=== PATIENT | male | born 2000 | race Caucasian/White ===

== ENCOUNTER 2020-07-10 09:18 | Outpatient (CLI) | payer MEDICAID, SELFPAY ==
[2020-07-11 00:28] LABS: COVID-19 RT-PCR UVMMC Result Negative (Negative)
== END 2020-07-10 09:38 ==
PROVIDERS: PCP Pediatrics; Visit Provider Nurse Practitioner Family
DX: Z11.59 Encounter for screening for other viral diseases (principal)
CPT/HCPCS: U0003

== ENCOUNTER 2021-11-16 15:36 | Emergency (ER) | payer MEDICAID, SELFPAY ==
[2021-11-16 15:42] VITALS: BP 122/73; PULSE 73; RESP 16; TEMP 36.7; O2SAT 99
--- NOTE | 2021-11-16 16:11 | ED.GENADUL_ITS ---
Discharge Plan Disposition Patient Disposition: HOME Condition: Stable Discharge Details Clinical Impression: Chalazion Primary Care Provider: Clement Mccann ED Provider: Juma Durand Home Meds and New Rx's Prescriptions: No Action albuterol sulfate [ProAir HFA] 90 mcg/actuation HFA aerosol inhaler 2 puff Inhalation Q4H PRN Qty: 8.5 1RF Rx Instructions: 1 for home and 1 for school Flovent Diskus 250 mcg/actuation blister with device 250 mcg Inhalation DAILY Qty: 1 3RF montelukast 10 mg tablet 10 mg PO DAILY Qty: 90 3RF Discharge Instructions Instructions: Chalazion (ED) Additional Instructions: Please use warm compresses 5-7 times a day for 5 to 10 minutes at a time, in order to help reduce inflammation. Please return to the emergency department if you develop fevers chills worsening swelling pain change in your vision or if this condition is not resolving in the coming weeks or if you develop any abnormal symptomatology. You will receive information for eye clinic follow-up as needed. Medical Decision Making 21-year-old male presents with 1 to 2 weeks of painless nodule to right lower eyelid, slight erythema, 1 cm nodule to mid lower lid, when everted can see gray/heber colored nodule, no eyelash base irritation, no surrounding induration or fluctuance, no proptosis, no visual changes, afebrile nontoxic does not wear contacts or glasses. Likely chalazion versus resolving hordeolum. Given home care instructions of warm compresses and strict return precautions for any signs of infection visual changes eye pain or worsening symptomatology; will be given [facility] eye clinic as well as [facility] ophthal[facility] clinic information to be used as needed for worsening symptoms. HPI General Date/Time Provider Initiated Documentation: 11/16/21 15:40 . HPI Narrative: 21-year-old male presents with painless lump to right lower eyelid over the past 1 to 2 weeks, denies purulent drainage or purulent head denies visual changes denies fevers chills or other systemic signs of illness does not wear glasses or contact lenses Related Data Home Medications Medication Instructions Recorded Confirmed albuterol sulfate 90 mcg/actuation 2 puff INHALATION Q4H PRN #8.5 g 07/10/21 11/16/21 aerosol inhaler (ProAir HFA) fluticasone propionate 250 250 mcg INHALATION DAILY #1 disk 07/10/21 11/16/21 mcg/actuation blister powder for inhalation (Flovent Diskus) montelukast 10 mg tablet 10 mg PO DAILY #90 tab 07/10/21 11/16/21 Previous Rx's Medication Instructions Recorded albuterol sulfate 90 mcg/actuation 2 puff INHALATION Q4H PRN #8.5 g 07/10/21 aerosol inhaler (ProAir HFA) fluticasone propionate 250 250 mcg INHALATION DAILY #1 disk 07/10/21 mcg/actuation blister powder for inhalation (Flovent Diskus) montelukast 10 mg tablet 10 mg PO DAILY #90 tab 07/10/21 Allergies Allergy/AdvReac Type Severity Reaction Status Date / Time cat dander Allergy Verified 11/16/21 15:47 dog dander Allergy Verified 11/16/21 15:47 Dust Mites Allergy Uncoded 11/16/21 15:47 General Stated Complaint: EyeProblem JOSELINE: 3 Review of Systems Narrative: Review of Systems Constitutional: negative Eyes: Eye nodule ENT: negative Cardiovascular: negative Respiratory: negative Gastrointestinal: negative : negative Musculoskeletal: negative Skin: negative Neurologic: negative Psych: negative PFSH All Active Problems (Updated 11/16/21 @ 16:18 by Juma Durand MD) Chalazion (Acute) Encounter for screening for other viral diseases (Acute) Body mass index [BMI] pediatric, 5th percentile to less than 85th percentile for age (Acute 08/30/15) Urticaria due to cold and heat (Acute 07/23/12) Academic underachievement (Acute 08/18/13) Mild persistent asthma without complication (Acute 08/30/15) Routine sports examination for healthy child or adolescent (Acute 06/30/12) Medical History Asthma Asthma, moderate persistent, well-controlled (06/30/12) well managed with flovent Body mass index [BMI] pediatric, 5th percentile to less than 85th percentile for age (08/30/15) Ingrowing toenail (02/19/13) Urticaria due to cold and heat (07/23/12) Surgical History Circumcision Oral/Tooth Toe nail removal Family History Mother Healthy adult on routine physical examination Father Healthy adult on routine physical examination Other Essential hypertension MGM, MGF Personal history of malignant neoplasm MGM-brain, MGF-colon Heart disease MGF Hyperlipidemia MGF, MGM Wilm's tumor (nephroblastoma) mat aunt Asthma mat cousins Social History Smoking/Tobacco Use Status: Never Smoking risk assessment performed?: Yes Alcohol Intake: current Exam Narrative Exam Narrative: Physical Examination General: alert, awake, cooperative, resting comfortably, no acute distress HEENT: Painless slightly erythematous nodule approximately 1 cm in diameter middle aspect of lower lid, with lid everted cannot see nodule on internal surface of lid has gray/heber like coloration; no fluctuance no proptosis no inflammation of eyelash base; normocephalic, atraumatic; PERRL, EOM intact, conjunctiva normal; no nasal discharge; moist mucous membranes, oral and pharyngeal mucosa normal, tolerating secretions Neck: supple, trachea midline; full ROM Chest: normal to inspection Respiratory: normal respiratory effort, speaking in full sentences, clear to auscultation, no wheezing, rales or rhonchi Cardiac: regular rate, regular rhythm, S1S2 intact, no murmurs rubs or gallops GI: abdomen soft, non-tender, non-distended; no palpable mass or hepatosp lenomegaly Skin: no lesions, rashes or trauma appreciated Neuro: AAOx3, normal speech, moving all extremities Extremities: Psych: Appropriate mood and affect Course Vital Signs Vital signs: Vital Signs Temperature 36.7 C 11/16/21 15:42 Pulse 73 11/16/21 15:42 Respiratory Rate 16 11/16/21 15:42 Blood Pressure 122/73 11/16/21 15:42 Pulse Oximetry 99 11/16/21 15:42 Temperature 36.7 C 11/16/21 15:42 Temperature Source Temporal Artery Scan 11/16/21 15:42 Pulse 73 11/16/21 15:42 Respiratory Rate 16 11/16/21 15:42 Respiratory Effort 11/16/21 15:47 Blood Pressure 122/73 11/16/21 15:42 Pulse Oximetry 99 11/16/21 15:42 Oxygen Delivery Method Room Air 11/16/21 15:42 Oxygen Flow Rate 0 11/16/21 15:42 Pain Level 0 11/16/21 15:42
--- NOTE | 2021-11-16 16:19 | NUR.NOTE ---
Nursing Note: PT INFO GIVEN TO CARE MANAGEMENT TO [place] [facility] [place] [facility] THE NEXT FEW WEEKS. RAUDEL, ED
--- NOTE | 2021-11-19 11:16 | CMACTNOTE_ITS ---
- If Service Date Differs Date of service: 11/19/21 Time of Service: 11:16 Care Management Activity Note Herbie is seen in the ED for a chalazion on his right eyelid. At the request of ED provider, CM coordinates referrals to [facility] and to [facility] to assist Herbie in obtaining a follow up appointment for further evaluation and treatment. Herbie has [place] Medicaid for health insurance.
== END 2021-11-16 16:31 | disposition home or self-care (01) ==
PROVIDERS: Emergency Provider Emergency Medicine; PCP Family Medicine
DX: H00.11 Chalazion right upper eyelid (principal)
CPT/HCPCS: 99281

== ENCOUNTER 2022-06-26 21:16 | Emergency (ER) | payer MEDICAID, SELFPAY ==
[2022-06-26] VITALS (16 sets, daily range): BP systolic 115; BP diastolic 100; PULSE 109–142; RESP 10–20; TEMP 38.1; O2SAT 96–100
--- NOTE | 2022-06-26 21:30 | DI.RAD_ITS ---
Exam(s) XR PORTABLE CHEST AP EXAM: XR PORTABLE CHEST AP CLINICAL HISTORY: cough, fever TECHNIQUE: 2D digital imaging was performed of the chest. Two images were obtained. AP views were obtained. COMPARISON: No exams were available for comparison FINDINGS: MEDIASTINUM: Normal. HEART: Normal. PULMONARY VASCULATURE: Normal. LUNGS: Clear. PLEURAL SPACE: No pleural effusion or pneumothorax. BONE:Within normal limits for the patient's age. OTHER FINDINGS:Normal. IMPRESSION: No acute pulmonary findings. DATA REPOSITORY: RADIATION DOSE DELIVERED:
--- NOTE | 2022-06-26 21:45 | ED.GENADUL_ITS ---
Discharge Plan Discharge Details Chief Complaint: RespSymp Primary Care Provider: Unknown,Unknown ED Provider: Juma Durand Home Meds and New Rx's Prescriptions: No Action albuterol sulfate [ProAir HFA] 90 mcg/actuation HFA aerosol inhaler 2 puff Inhalation Q4H PRN Qty: 8.5 1RF Rx Instructions: 1 for home and 1 for school Flovent Diskus 250 mcg/actuation blister with device 250 mcg Inhalation DAILY Qty: 1 3RF montelukast 10 mg tablet 10 mg PO DAILY Qty: 90 3RF Medical Decision Making 21-year-old male presents with fever, tachycardia, cough, chest congestion over the past several days, recent sick contact tested positive for influenza. Patient is alert oriented no respiratory distress lungs clear bilaterally no hypoxia. No family history of premature cardiac or thromboembolic disease. Likely viral syndrome and resultant reactive airway disease, lower suspicion for ACS PE or aortic pathology. Must also consider pneumonia. Will obtain basic labs chest x-ray COVID rsv influenza swab, fluids, antipyretics, nebs and steroids, close reassessment. 23: 00 receiving neb treatment steroids and fluids currently, persistently tachycardic x-ray appears clear, awaiting labs and COVID flu RSV swab. No rash or distress at this time, hemodynamically stable. Disposition pending reassessment of symptoms and vital signs. HPI General Date/Time Provider Initiated Documentation: 06/26/22 21:34 . HPI Narrative: 21-year-old male history of asthma presents with fever cough and chest tightness in the setting of recent sick contact who tested positive for the flu. Denies family history of premature cardiac or thromboembolic disease. No leg pain or swelling. No recent travel or antibiotic use. Related Data Home Medications Medication Instructions Recorded Confirmed albuterol sulfate 90 mcg/actuation 2 puff inhalation Q4H PRN #8.5 07/10/21 11/16/21 aerosol inhaler (ProAir HFA) grams fluticasone propionate 250 250 mcg inhalation DAILY ##1 07/10/21 11/16/21 mcg/actuation blister powder for inhalation (Flovent Diskus) montelukast 10 mg tablet 10 mg PO DAILY #90 tabs 07/10/21 11/16/21 Previous Rx's Medication Instructions Recorded albuterol sulfate 90 mcg/actuation 2 puff inhalation Q4H PRN #8.5 07/10/21 aerosol inhaler (ProAir HFA) grams fluticasone propionate 250 250 mcg inhalation DAILY ##1 07/10/21 mcg/actuation blister powder for inhalation (Flovent Diskus) montelukast 10 mg tablet 10 mg PO DAILY #90 tabs 07/10/21 Allergies Allergy/AdvReac Type Severity Reaction Status Date / Time cat dander Allergy Verified 11/16/21 15:47 dog dander Allergy Verified 11/16/21 15:47 Dust Mites Allergy Uncoded 11/16/21 15:47 General Stated Complaint: RespSymp JOSELINE: 3 Review of Systems Narrative: Review of Systems Constitutional: negative Eyes: negative ENT: negative Cardiovascular: negative Respiratory: Cough, chest congestion Gastrointestinal: negative : negative Musculoskeletal: negative Skin: negative Neurologic: negative Psych: negative PFSH All Active Problems (Updated 12/17/21 @ 00:05 by EDWARDO HEAD) Encounter for screening for other viral diseases (Acute) Body mass index [BMI] pediatric, 5th percentile to less than 85th percentile for age (Acute 08/30/15) Urticaria due to cold and heat (Acute 07/23/12) Academic underachievement (Acute 08/18/13) Mild persistent asthma without complication (Acute 08/30/15) Routine sports examination for healthy child or adolescent (Acute 06/30/12) Medical History Asthma Asthma, moderate persistent, well-controlled (06/30/12) well managed with flovent Body mass index [BMI] pediatric, 5th percentile to less than 85th percentile for age (08/30/15) Ingrowing toenail (02/19/13) Urticaria due to cold and heat (07/23/12) Surgical History Circumcision Oral/Tooth Toe nail removal Family History Mother Healthy adult on routine physical examination Father Healthy adult on routine physical examination Other Essential hypertension MGM, MGF Personal history of malignant neoplasm MGM-brain, MGF-colon Heart disease MGF Hyperlipidemia MGF, MGM Wilm's tumor (nephroblastoma) mat aunt Asthma mat cousins Social History Smoking/Tobacco Use Status: Never Smoking risk assessment performed?: Yes Alcohol Intake: current Drug use: Never Substance use type: does not use Do you feel safe at home: Yes Do you feel safe in your relationship?: Yes Exam Narrative Exam Narrative: Physical Examination General: alert, awake, cooperative, resting comfortably, no acute distress HEENT: normocephalic, atraumatic; PERRL, EOM intact, conjunctiva normal; no nasal discharge; moist mucous membranes, oral and pharyngeal mucosa normal, tolerating secretions Neck: supple, trachea midline; full ROM Chest: normal to inspection Respiratory: normal respiratory effort, speaking in full sentences, clear to auscultation, no wheezing, rales or rhonchi Cardiac: Tachycardia, regular rhythm, S1S2 intact, no murmurs rubs or gallops GI: abdomen soft, non-tender, non-distended; no palpable mass or hepatosplenomegaly Skin: no lesions, rashes or trauma appreciated Neuro: AAOx3, normal speech, moving all extremities Psych: Appropriate mood and affect Course Vital Signs Vital signs: Vital Signs Temperature 38.1 C H 06/26/22 21:26 Pulse 114 H 06/26/22 21:26 Respiratory Rate 20 06/26/22 21:26 Blood Pressure 115/100 H 06/26/22 21:26 Pulse Oximetry 96 06/26/22 21:26 Temperature 38.1 C H 06/26/22 21:26 Pulse 114 H 06/26/22 21:26 Respiratory Rate 20 06/26/22 21:26 Blood Pressure 115/100 H 06/26/22 21:26 Blood Pressure Position Sitting 06/26/22 21:26 Pulse Oximetry 96 06/26/22 21:26 Oxygen Delivery Method Room Air 06/26/22 21:26 Oxygen Flow Rate 0 06/26/22 21:26 Pain Level 0 06/26/22 21:26
--- NOTE | 2022-06-26 22:04 | DI.VRAD_ITS ---
PROCEDURE INFORMATION: Exam: XR Chest Exam date and time: 06/26/2022 9:33 PM Age: 21 years old Clinical indication: Cough and hyperventilation TECHNIQUE: Imaging protocol: Radiologic exam of the chest. Views: 1 view. COMPARISON: No relevant prior studies available. FINDINGS: Mildly limited due to rotation Lungs: Mild chronic interstitial prominence. No consolidation. Pleural spaces: No pleural effusion. No pneumothorax. Heart/Mediastinum: No cardiomegaly. Bones/joints: Unremarkable. IMPRESSION: No acute findings. Dictated and Authenticated by: Severiano Landeros MD. Ordering:SAQIB Dennison MD
[2022-06-26 22:34] LABS: Abs Immature Grans 0.03 10^3/uL (0.0-0.06); Absolute Basophil Count 0.03 10^3/uL (0.0-0.2); Absolute Eosinophil Count 0.41 10^3/uL (0.0-0.7); Absolute Lymphocyte Count 0.63 10^3/uL (1.2-3.4); Absolute Monocyte Count 0.72 10^3/uL (0.1-0.8); Absolute Neutrophil Count 5.18 10^3/uL (1.2-6.7); Basophils % 0.4; Eosinophils % 5.9; HCT 42.5 % (40.0-50.0); HGB 14.7 g/dL (13.5-17.5); Immature Grans % 0.4; MCH 28.7 pg (27.0-33.0); MCHC 34.6 % (32.0-36.0); MCV 83 fL (80-95); MPV 9.8 fL (8.0-11.0); Monocytes % 10.3; Platelet Count 184 10^3/uL (130-400); RBC 5.12 10^6/uL (4.36-5.78); RDW 11.9 % (11.8-14.1); RDW-SD 36.4 fL
[2022-06-26] MEDS: Acetaminophen 325 MG TAB 650 MG PO (22:38)
[2022-06-26] MEDS: Albuterol/Ipratropium 3 ML UPD VIAL UPD (22:38)
--- NOTE | 2022-06-26 22:45 | RT.EKG_ITS ---
APPROVED REPORT Exam: Resting ECG Reason for Exam: tachycardia Patient Location: E HR:129 bpm ECG Measurements Heart Rate 129 AXIS RI 132 P 64 QRSd 90 QRS 60 QT 281 T 264 QTc 411 Conclusion Sinus tachycardia...rate> [address] depression, diffuse leads...ST <-0.07mV, ant/lat/inf Abnormal T, consider ischemia, diffuse leads...T <-0.20mV, ant/lat/inf sinus tachycardia, norml axis, rate related st changes
[2022-06-26] MEDS: Normal Saline 1,000 ML 1000 ML IV (22:55)
[2022-06-26 23:01] LABS: ALT 29 U/L (16-63); AST 18 U/L (15-37); Albumin 4.2 g/dL (3.4-5.0); Alkaline Phosphatase 108 U/L (46-116); Anion Gap 8.8 mmol/L (3-11); BUN 6 mg/dL (7-18); Bilirubin, Total 0.6 mg/dL (0.2-1.0); CO2 27.2 mmol/L (21.0-32.0); CREATININE 1.1 mg/dL (0.70-1.30); Calcium 9.2 mg/dL (8.5-10.1); Chloride 101 mmol/L (98-107); Estimated GFR 97.95 (mL/min/1.73m2); Glucose 91 mg/dL (74-106); Potassium 3.6 mmol/L (3.5-5.1); Sodium 137 mmol/L (136-145); Total Protein 7.6 g/dL (6.4-8.2)
[2022-06-26] MEDS: Dexamethasone 10 MG/ML VIAL IVP (23:01)
[2022-06-26 23:12] LABS: COVID-19 PCR Negative (Negative); Influenza A PCR Positive (Negative); Influenza B PCR Negative (Negative); RSV PCR Negative (Negative)
[2022-06-26 23:13] LABS: Source Nasopharynx
[2022-06-27] VITALS (7 sets, daily range): PULSE 105–127; RESP 12–22; O2SAT 97–98
--- NOTE | 2022-06-27 00:06 | W.EDPROG ---
Date of service: 06/26/22 Time of Service: 23:00 Medical Decision Making 2299 --please see Dr. Durand's note for initial presentation, exam and plan. Case endorsed to follow-up on labs and imaging and final disposition. It is suspected his symptoms are infectious in nature and to reassess after meds. 2330 --patient is influenza A positive. Remainder of labs unremarkable. Chest x-ray negative for acute findings. He remains tachycardic. Will give additional IV fluids and reassess. 0030 --Pt reassessed and he feels much better would like to go home. Heart rate much improved to low 100s. Patient is requesting to go home. Discussed that he is outside the treatment window for antiviral medication. He is advised to increase fluids, rest and alternating Tylenol Motrin. Advised to follow up with the primary care doctor for re-evaluation. Usual and customary return precautions given prior to discharge. Medical Records Medical records reviewed: Yes I reviewed the patient's medical records. Imaging Data Radiologic Study: Radiologist's impression: XR Chest Exam date and time: 06/26/2022 9:33 PM Age: 21 years old Clinical indication: Cough and hyperventilation TECHNIQUE: Imaging protocol: Radiologic exam of the chest. Views: 1 view. COMPARISON: No relevant prior studies available. FINDINGS: Mildly limited due to rotation Lungs:? Mild chronic interstitial prominence. No consolidation. Pleural spaces: No pleural effusion. No pneumothorax. Heart/Mediastinum: No cardiomegaly. Bones/joints: Unremarkable. IMPRESSION: No acute findings. Lab Data Lab results reviewed: Yes I reviewed the patient's lab results. Labs: Laboratory Tests Range/Units 06/26/22 06/26/22 06/26/22 22:30 22:30 22:30 WBC (4.4-10.8) 10^3/uL 7.00 RBC (4.36-5.78) 10^6/uL 5.12 Hgb (13.5-17.5) g/dL 14.7 Hct (40.0-50.0) % 42.5 MCV (80-95) fL 83 MCH (27.0-33.0) pg 28.7 MCHC (32.0-36.0) % 34.6 RDW (11.8-14.1) % 11.9 Plt Count (130-400) 10^3/uL 184 MPV (8.0-11.0) fL 9.8 Immature Gran % 0.4 Neutrophils % 74.0 Lymphocytes % 9.0 Monocytes % 10.3 Eosinophils % 5.9 Basophils % 0.4 Nucleated RBC % (0.0-0.3) % 0.0 Absolute Neutrophils (1.2-6.7) 10^3/uL 5.18 Absolute Lymphocytes (1.2-3.4) 10^3/uL 0.63 L Absolute Monocytes (0.1-0.8) 10^3/uL 0.72 Absolute Eosinophils (0.0-0.7) 10^3/uL 0.41 Absolute Basophils (0.0-0.2) 10^3/uL 0.03 Sodium (136-145) mmol/L 137 Potassium (3.5-5.1) mmol/L 3.6 Chloride (98-107) mmol/L 101 Carbon Dioxide (21.0-32.0) mmol/L 27.2 Anion Gap (3-11) mmol/L 8.8 BUN (7-18) mg/dL 6 L Creatinine (0.70-1.30) mg/dL 1.1 Est GFR (CKD-EPI 2020) (mL/min/1.73m2) 97.95 Glucose (74-106) mg/dL 91 Calcium (8.5-10.1) mg/dL 9.2 Total Bilirubin (0.2-1.0) mg/dL 0.6 AST (15-37) U/L 18 ALT (16-63) U/L 29 Alkaline Phosphatase (46-116) U/L 108 Total Protein (6.4-8.2) g/dL 7.6 Albumin (3.4-5.0) g/dL 4.2 COVID-19 Source Nasopharynx SARS-CoV-2 (PCR) (Negative) Negative Influenza Type A (PCR) (Negative) Positive A Influenza Type B (PCR) (Negative) Negative RSV (PCR) (Negative) Negative ECG Data Attestation: I personally reviewed and interpreted this ECG (s) as follows: Interpretation: Rate of 129, sinus, normal axis, T wave inversion in inferior leads, no STEMI. Sign Out Sign Out Data: Sign Out Comment: fever cough tachy, likely viral resp illness; pending labs and reassessment after meds Last updated by Juma Durand MD at 06/26/22 23:01 Discharge Plan Disposition Patient Disposition: Home Condition: Improving Discharge Details Clinical Impression: Influenza A ED Provider: Valerie Henderson Home Meds and New Rx's Prescriptions: New albuterol sulfate 90 mcg/actuation HFA aerosol inhaler 2 puff inhalation Q6H PRN (Reason: shortness of breath or wheezing) Qty: 8.5 0RF Continued albuterol sulfate [ProAir HFA] 90 mcg/actuation HFA aerosol inhaler 2 puff Inhalation Q4H PRN Qty: 8.5 1RF Rx Instructions: 1 for home and 1 for school Flovent Diskus 250 mcg/actuation blister with device 250 mcg Inhalation DAILY Qty: 1 3RF montelukast 10 mg tablet 10 mg PO DAILY Qty: 90 3RF Discharge Instructions Instructions: H1N1 Influenza (ED) Additional Instructions: You tested positive for influenza A today. This is a virus that is best treated with fluids, rest and alternating Tylenol and ibuprofen. Take Tylenol every 4 hours and ibuprofen every 6 hours as needed and directed for pain or fever. Use your albuterol inhaler as needed and directed for cough, wheezing or shortness of breath. Drink plenty of fluids and get plenty of rest. Follow-up with your primary care doctor in 1 week. Return to the emergency department with any worsening or new concerning symptoms. Discharge Data Discharge Date/Time-TO BE ENTERED AT DEPARTURE: 06/27/22 01:24 Discharge Physician: Valerie Henderson
[2022-06-27] MEDS: Normal Saline 1,000 ML 1000 ML IV (00:13)
[2022-06-27] MEDS: Albuterol HFA 8 GM 60 PUFF INH IH (00:59)
== END 2022-06-27 01:24 | disposition home or self-care (01) ==
PROVIDERS: Emergency Medicine; Emergency Provider Physician Assistant
DX: J10.1 Influenza due to other identified influenza virus with other respiratory manifestations (principal); J45.40 Moderate persistent asthma, uncomplicated; Z20.822 Contact with and (suspected) exposure to COVID-19
CPT/HCPCS: 80053; 87637; 93005; 96361; 96374; 99284; 71045; 85025; 93010; 99285; J1100; J7620

== ENCOUNTER 2025-06-28 11:09 | Emergency (ER) | payer MEDICAID, SELFPAY ==
[2025-06-28 11:13] VITALS: BP 121/79; PULSE 102; RESP 20; TEMP 36.9; O2SAT 96
--- NOTE | 2025-06-28 11:15 | RT.EKG_ITS ---
APPROVED REPORT Exam: Resting ECG Reason for Exam: Belching Patient Location: E HR:83 bpm ECG Measurements Heart Rate 83 AXIS CA 114 P 74 QRSd 86 QRS 70 QT 329 T 11 QTc 387 Conclusion Sinus arrhythmia...V-rate 65- 99, variation>10% No Occlusion [place]
[2025-06-28 11:16] VITALS: BP 121/79; PULSE 102; RESP 20; TEMP 36.9; O2SAT 96
--- NOTE | 2025-06-28 11:35 | W.ED.GENAD ---
Discharge Plan Disposition Patient Disposition: Home Discharge Details Clinical Impression: Acid reflux, Indigestion Primary Care Provider: Clement Mccann ED Provider: Chava Brunson Home Meds and New Rx's Prescriptions: New famotidine 40 mg tablet 40 mg PO BID Qty: 30 0RF ondansetron 4 mg tablet,disintegrating 4 mg PO BID 5 Days Qty: 10 0RF ondansetron 4 mg tablet,disintegrating 4 mg PO BID 5 Days Qty: 10 0RF Continued montelukast 10 mg tablet 10 mg PO DAILY Qty: 90 3RF Asmanex Twisthaler 220 mcg/ actuation (60) aerosol powdr breath activated 1 inh inhalation QPM Qty: 1 6RF albuterol sulfate [Ventolin HFA] 90 mcg/actuation HFA aerosol inhaler 2 inh inhalation Q4H PRN (Reason: shortness of breath or wheezing) Qty: 2 2RF Discharge Instructions Additional Instructions: You are seen in the emergency department for your indigestion. Please take these medicines already been sent to your pharmacy as directed. Please follow-up with your primary care provider. Please return to the emergency department as we discussed if you develop nausea vomiting or any pain in your chest. Stand Alone Forms: Portal Information Discharge Data Discharge Date/Time-TO BE ENTERED AT DEPARTURE: 06/28/25 12:36 HPI General Date/Time Provider Initiated Documentation: 06/28/25 11:20. HPI Narrative: MDM This is a quite well-appearing normothermic and initially tachycardic 24-year-old male with belching and vomiting concerning for acid reflux for which patient will receive treatment with GI cocktail. No pain on proportion to suggest necrotizing soft tissue infection. No wheezing or shortness of breath to suggest exacerbation of reactive airway disease. In the absence of chest pain I did not feel patient required a troponin in the setting of his nonischemic ECG and his lack of risk factors. He had no trauma to his chest to suggest pneumothorax. He is not cachectic to suggest increased risk for nutcracker esophagus. No shortness of breath to suggest PE so did not send a D-dimer. Soft nontender abdomen so doubt intra-abdominal infection. Patient is not an alcoholic nor is he markedly obese and not suspicious for pancreatitis I did not feel he required a lipase. No cough to suggest pneumonia. Concerning his feelings of presyncope it is reassuring that his symptoms correlated temporally with his nausea vomiting and belching. He had not had any actual syncopal episodes there is certainly no exertional syncopal components. He does not have any black or bloody stools to suggest acute GI bleed. In the absence of vomiting I did not feel he required assessment of his electrolytes. He does not appear pale and was only mildly tachycardic and as a result my suspicion is low for anemia as I did not feel that he required an assessment of his CBC today. I met with the patient and his mother following his reassuring evaluation. I sent him with a short course of ondansetron and famotidine. He does with primary care provider they will plan to follow-up. We discussed that he should be return to the ED if he develops any chest pain if he passes out begins vomiting and does not stop or if they have any other concerns. Patient and his mother understood return indications and patient was discharged with an empiric trial of expectant outpatient management. [Diagnostic interpretations performed by me: Per my independent interpretation EKG shows: Narrow complex sinus rhythm at a rate of 83 with sinus arrhythmia. Shortened UT interval no obvious delta wave. QTc within normal limits. Compared to prior dated 3 years ago UT interval has shortened. No ST segment abnormalities. No acute injury pattern. HPI This is a patient with a history of asthma presenting with symptoms of indigestion. The patient reports experiencing indigestion characterized by the sensation of gas rising up, which occasionally leads to vomiting. These episodes have occurred twice, each lasting approximately 1 to 2 days before resolving. The most recent episode began a week prior to (05/2025) and had resolved by the holiday. He remained symptom-free until yesterday. The patient describes the vomiting as not feeling like normal vomiting; he experiences a quick sensation followed by temporary relief, but the symptoms return. He also reports hunger pangs, attributing them to not eating much. The patient is currently taking Singulair and uses albuterol inhalers. He reports no trouble breathing or chest pain. There is no known family history of inflammatory bowel disease. PAST SURGICAL HISTORY: Toe surgery. Exam General: Well-appearing in no acute distress speaking in complete sentences. Head: Normocephalic, atraumatic. Eye: Extraocular eye movements intact. No conjunctival injection. No scleral icterus. Ear, nose, mouth, throat: Grossly normal inspection. Normal voice, handling secretions normally. Neck: Trachea midline. Cardiovascular: Well-perfused distal extremities. Regular rate and rhythm. Respiratory: Nonlabored respiration. Clear lungs bilaterally. Gastrointestinal: Nondistended abdomen. Musculoskeletal: No edema. Moving all 4 extremities spontaneously. Skin: Normal for age and race, grossly normal temperature and turgor. No acute rash. Neurologic: Alert and appropriate, no apparent acute deficits. Psychiatric: Mood and manner are appropriate. Grooming and personal hygiene are appropriate. Related Data Home Medications ?Medication ?Instructions ?Recorded ?Confirmed montelukast 10 mg tablet 10 mg PO DAILY #90 tabs 07/30/24 06/28/25 albuterol sulfate 90 mcg/actuation 2 inh inhalation Q4H PRN shortness 08/17/24 06/28/25 aerosol inhaler (Ventolin HFA) of breath or wheezing #2 ea mometasone 220 mcg/actuation(60 1 inh inhalation QPM #1 ea 08/17/24 06/28/25 doses) breath activated powder inhaler (Asmanex Twisthaler) famotidine 40 mg tablet 40 mg PO BID #30 tabs 06/28/25 ondansetron 4 mg disintegrating 4 mg PO BID 5 days #10 tabs 06/28/25 tablet ondansetron 4 mg disintegrating 4 mg PO BID 5 days #10 tabs 06/28/25 tablet Previous Rx's ?Medication ?Instructions ?Recorded montelukast 10 mg tablet 10 mg PO DAILY #90 tabs 07/30/24 albuterol sulfate 90 mcg/actuation 2 inh inhalation Q4H PRN shortness 08/17/24 aerosol inhaler (Ventolin HFA) of breath or wheezing #2 ea mometasone 220 mcg/actuation(60 1 inh inhalation QPM #1 ea 08/17/24 doses) breath activated powder inhaler (Asmanex Twisthaler) famotidine 40 mg tablet 40 mg PO BID #30 tabs 06/28/25 ondansetron 4 mg disintegrating 4 mg PO BID 5 days #10 tabs 06/28/25 tablet ondansetron 4 mg disintegrating 4 mg PO BID 5 days #10 tabs 06/28/25 tablet Allergies Allergy/AdvReac Type Severity Reaction Status Date / Time cat dander Allergy Mild Sinus Verified 06/28/25 11:18 congestion; watery eyes dog dander Allergy Mild Sinus Verified 06/28/25 11:18 congestion; watery eyes house dust mite Allergy Mild Sinus Verified 06/28/25 11:18 congestion; watery eyes General Stated Complaint: Abd Prob JOSELINE: 3 Course Vital Signs Vital signs: Vital Signs Temperature 36.9 C 06/28/25 11:13 Pulse 102 H 06/28/25 11:13 Respiratory Rate 20 06/28/25 11:13 Blood Pressure 121/79 06/28/25 11:13 Pulse Oximetry 96 06/28/25 11:13 Temperature 36.9 C 06/28/25 11:16 Pulse 102 H 06/28/25 11:16 Respiratory Rate 20 06/28/25 11:16 Blood Pressure 121/79 06/28/25 11:16 Blood Pressure Position Sitting 06/28/25 11:16 Pulse Oximetry 96 06/28/25 11:16 Oxygen Delivery Method Room Air 06/28/25 11:16 Oxygen Flow Rate 0 06/28/25 11:16 Medical Decision Making Quality:SDOH Health Related Social Needs: Health related social needs house/econ circumstance lonely/isolated PFSH All Active Problems (Updated 06/28/25 @ 11:36 by Chava Brunson MD) Indigestion (Acute) Acid reflux (Chronic) Body mass index [BMI] pediatric, 5th percentile to less than 85th percentile for age (Acute 08/30/15) Urticaria due to cold and heat (Acute 07/23/12) Medical History Asthma Asthma, moderate persistent, well-controlled (06/30/12) well managed with flovent Body mass index [BMI] pediatric, 5th percentile to less than 85th percentile for age (08/30/15) Ingrowing toenail (02/19/13) Urticaria due to cold and heat (07/23/12) Surgical History Circumcision Oral/Tooth Toe nail removal Family History Mother Healthy adult on routine physical examination Father Healthy adult on routine physical examination Other Essential hypertension MGM, MGF Personal history of malignant neoplasm MGM-brain, MGF-colon Heart disease MGF Hyperlipidemia MGF, MGM Wilm's tumor (nephroblastoma) mat aunt Asthma mat cousins Social History (Updated 06/24/23 @ 08:32 by Sunshine Santa [facility]) Smoking/Tobacco Use Status: Never Smoking risk assessment performed?: Yes Alcohol Intake: never Drug use: Never Substance use type: does not use Adopted: No Foster care: No Household members: family Housing: house Number of Children: 0 number of grandchildren: 0 Communication Needs: None Do you need help understanding health information?: Rarely Pets and animals: Yes (1) Pets and animals: cat(s) Sexually active: No Do you think of yourself as: straight/heterosexual Current gender identity: male What is your relationship status?: refused to answer How often do you talk on the phone with friends or family?: three or more times per week How often do you get together with friends or relatives?: twice per week Panel score (0-1 are the most socially isolated patients): 1 Seatbelt use: always Helmet use: Yes Helmet use: always Drive intox or ride w/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
[2025-06-28] MEDS: Famotidine 20 MG TAB 40 MG PO (11:45)
[2025-06-28] MEDS: Mylanta Suspension 30 ML CUP PO (11:45)
[2025-06-28 12:27] VITALS: BP 102/75; PULSE 86; RESP 16; TEMP 36.8; O2SAT 100
== END 2025-06-28 12:36 | disposition home or self-care (01) ==
PROVIDERS: Emergency Provider Emergency Medicine; PCP Family Medicine
DX: K21.9 Gastro-esophageal reflux disease without esophagitis (principal)
CPT/HCPCS: 99283 ×2; 93005; 93010

== ENCOUNTER 2025-07-07 10:10 | Emergency (ER) | payer MEDICAID, SELFPAY ==
--- NOTE | 2025-07-07 10:00 | RT.EKG_ITS ---
APPROVED REPORT Exam: Resting ECG Reason for Exam: Palpatations, Difficulty Breathing Patient Location: E HR:70 bpm ECG Measurements Heart Rate 70 AXIS MD 127 P 59 QRSd 91 QRS 71 QT 371 T 49 QTc 400 Conclusion Unknown rhythm, irregular rate...V-rate 51- 97, variation>10% No STEMI
[2025-07-07 10:13] VITALS: BP 130/68; PULSE 77; RESP 20; TEMP 36.8; O2SAT 100
[2025-07-07 10:31] VITALS: BP 141/80; PULSE 98; O2SAT 100
[2025-07-07 10:46] VITALS: BP 149/72; PULSE 63; PULSE 76; RESP 12; O2SAT 99
[2025-07-07 10:55] LABS: Abs Immature Grans 0.01 10^3/uL (0.0-0.06); HCT 42.5 % (40.0-50.0); HGB 14.5 g/dL (13.5-17.5); Immature Grans % 0.1 %; MCH 28.9 pg (27.0-33.0); MCHC 34.1 % (32.0-36.0); MCV 85 fL (80-95); MPV 10.3 fL (8.0-11.0); Platelet Count 276 10^3/uL (130-400); RBC 5.02 10^6/uL (4.36-5.78); RDW 12.4 % (11.8-14.1); RDW-SD 37.8 fL; WBC 6.79 10^3/uL (4.4-10.8)
--- NOTE | 2025-07-07 11:05 | DI.RAD_ITS ---
Exam(s) XR CHEST 2V PA LATERAL EXAM: XR CHEST 2V PA LATERAL CLINICAL HISTORY: dyspnea. TECHNIQUE: 2D digital imaging was performed. COMPARISON: CR,XR XR PORTABLE CHEST AP from 06/26/2022 FINDINGS: 2 views: Heart size is normal. The mediastinum is not widened. Lungs are clear. No infiltrates nor pleural effusions. IMPRESSION: No acute pulmonary findings. DATA REPOSITORY: RADIATION DOSE DELIVERED:
[2025-07-07 11:15] LABS: Magnesium 2.1 mg/dL (1.6-2.6)
[2025-07-07 11:16] LABS: ALT 13 U/L (10-49); AST 16 U/L (<34); Albumin 4.8 g/dL (3.2-5.0); Alkaline Phosphatase 87 U/L (46-116); Anion Gap 9.4 mmol/L (3-11); BUN 7 mg/dL (9-23); Bilirubin, Total 0.7 mg/dL (0.2-1.2); CO2 26.6 mmol/L (20.0-31.0); Calcium 9.9 mg/dL (8.3-10.6); Chloride 105 mmol/L (98-107); Glucose 93 mg/dL (74-106); Potassium 3.5 mmol/L (3.5-5.1); Sodium 141 mmol/L (136-145); Total Protein 7.7 g/dL (5.7-8.2)
[2025-07-07 11:21] LABS: Troponin I < 3 ng/L (<54)
[2025-07-07 11:22] LABS: D-Dimer 120 ng/mlFEU (<500)
--- NOTE | 2025-07-07 11:26 | W.ED.GENAD ---
Discharge Plan Disposition Patient Disposition: Home Discharge Details Clinical Impression: Palpitations, Sinus arrhythmia Primary Care Provider: Clement Mccann ED Provider: Anthony Weston Home Meds and New Rx's Prescriptions: No Action montelukast 10 mg tablet 10 mg PO DAILY Qty: 90 3RF Asmanex Twisthaler 220 mcg/ actuation (60) aerosol powdr breath activated 1 inh inhalation QPM Qty: 1 6RF albuterol sulfate [Ventolin HFA] 90 mcg/actuation HFA aerosol inhaler 2 inh inhalation Q4H PRN (Reason: shortness of breath or wheezing) Qty: 2 2RF famotidine 40 mg tablet 40 mg PO BID Qty: 30 0RF Discharge Instructions Instructions: Palpitations ED Additional Instructions: As discussed, your evaluation today is reassuring that there is no emergent cause of your symptoms occurring today. Your EKG shows a sinus arrhythmia, your telemetry did not show any acute arrhythmias when reviewed during your stay, your labs are all normal, your bedside ultrasound showed no acute abnormalities, your chest x-ray was also normal. Although it is unclear what is been causing your symptoms over the past several weeks, I remain suspicious for chronic marijuana usage as well as possible anxiety as possible causes. Please follow-up with your primary care provider regarding your visit to the emergency department today. Be sure to discuss results of all test performed here today to include radiology, and laboratory testing as well as results for any pending cultures. Your doctor may want to persue further testing such as a formal diagnostic electrocardiogram (a more in depth ultrasound picture of the heart) or halter monitor ( a wearable device that tracks the electrical activity of your heart). Should your symptoms worsen, or if you develop new concerning symptoms, please return immediately emergency department for further evaluation. Stand Alone Forms: Portal Information HPI General Date/Time Provider Initiated Documentation: 07/07/25 10:11. HPI Narrative: MDM/Narrative: 24-year-old male presents for evaluation of palpitations associated chest pressure, times several weeks. Recent ER visit several weeks ago which was reassuring EKG, which is similar to today's visit showing a sinus arrhythmia. Vital signs are within normal limits outside of mild stage I hypertension. Physical exam is otherwise unremarkable. Bedside ultrasound shows no obvious structural abnormalities, hypokinesis, pericardial effusion or any other acute findings. Based on patient's h history and physical, most suspicious for sinus arrhythmia/anxiety, this could be related to patient's chronic marijuana usage, however today he has a reassuring workup with negative troponin, normal EKG bedside ultrasound negative D-dimer and no electrolyte abnormalities. Plan of care discussed with the family and patient who are agreeable to plan for discharge to follow-up primary care for further management. Disposition: Home HPI: 24-year-old male past med history of asthma, GERD, presents for evaluation of palpitations with associated chest pressure and breathlessness for the past 2 weeks. Notes that symptoms are episodic, with no pattern that causes symptoms to start that the patient cannot differentiate. He notes that they last for seconds to minutes at a time and they may disappear for hours. Denies any associated fever, chills, cough, leg swelling, leg pain, history of blood clots, history of cancer or any other new or concerning symptoms. Family also denies any history of early onset heart disease or stroke in the family. Patient does smoke marijuana daily denies tobacco use or alcohol use. ROS: Negative besides as mentioned above Exam: Gen: A&O NAD, anxious. HEENT: NCAT, EOMI, not icteric. External ears normal. No rhinorrhea. Moist mucous membranes. Neck: Supple, full range of motion, no observable masses, No meningeal sign. Lungs: No Respiratory distress. CV: RRR, no edema. Abdomen: Soft, nondistended, No rebound tenderness. MSK: No joint swelling, no redness. Skin: No rashes, petechiae, lesions. Normal color per patient. Neuro: Normal Gait, Grossly intact. Rhythm: Sinus arrhythmia Rate: 70 [place]: Normal axis Intervals: Normal intervals Other findings: No acute ST segment or T wave changes to suggest acute ischemia. Labs: Laboratory Tests Range/Units 07/07/25 07/07/25 10:36 10:48 WBC (4.4-10.8) 10^3/uL 6.79 RBC (4.36-5.78) 10^6/uL 5.02 Hgb (13.5-17.5) g/dL 14.5 Hct (40.0-50.0) % 42.5 MCV (80-95) fL 85 MCH (27.0-33.0) pg 28.9 MCHC (32.0-36.0) % 34.1 RDW (11.8-14.1) % 12.4 Plt Count (130-400) 10^3/uL 276 MPV (8.0-11.0) fL 10.3 Immature Gran % % 0.1 Neutrophils % % 77.8 Lymphocytes % % 15.0 Monocytes % % 5.7 Eosinophils % % 1.0 Basophils % % 0.4 Nucleated RBC % (0.0-0.3) % 0.0 Absolute Neutrophils (1.2-6.7) 10^3/uL 5.27 Absolute Lymphocytes (1.2-3.4) 10^3/uL 1.02 L Absolute Monocytes (0.1-0.8) 10^3/uL 0.39 Absolute Eosinophils (0.0-0.7) 10^3/uL 0.07 Absolute Basophils (0.0-0.2) 10^3/uL 0.03 D-Dimer (<500) ng/mlFEU 120 Sodium (136-145) mmol/L 141 Potassium (3.5-5.1) mmol/L 3.5 Chloride (98-107) mmol/L 105 Carbon Dioxide (20.0-31.0) mmol/L 26.6 Anion Gap (3-11) mmol/L 9.4 BUN (9-23) mg/dL 7 L Creatinine (0.73-1.18) mg/dL 1.04 Est GFR (CKD-EPI 2020) (mL/min/1.73m2) 87.04 Glucose (74-106) mg/dL 93 Calcium (8.3-10.6) mg/dL 9.9 Magnesium (1.6-2.6) mg/dL 2.1 Total Bilirubin (0.2-1.2) mg/dL 0.7 AST (<34) U/L 16 ALT (10-49) U/L 13 Alkaline Phosphatase (46-116) U/L 87 Troponin I Cancelled < 3 NT-Pro-B Natriuret Pep (<300) pg/mL < 35 Total Protein (5.7-8.2) g/dL 7.7 Albumin (3.2-5.0) g/dL 4.8 Radiology: PROCEDURE INFORMATION: Exam: XR Chest Exam date and time: 07/07/2025 11:03 AM Age: 24 years old Clinical indication: Other: Dyspnea TECHNIQUE: Imaging protocol: Radiologic exam of the chest. Views: 2 views. COMPARISON: CR XR PORTABLE CHEST AP 06/26/2022 9:33 PM FINDINGS: Lungs: No consolidation. Lungs are hyperinflated. Pleural spaces: Unremarkable. No pleural effusion. No pneumothorax. Heart/Mediastinum: Unremarkable. No cardiomegaly. Bones/joints: Unremarkable. IMPRESSION: No acute findings. Thank you for allowing us to participate in the care of your patient. Dictated and Authenticated by: Darren Tony, DO Related Data Home Medications ?Medication ?Instructions ?Recorded ?Confirmed montelukast 10 mg tablet 10 mg PO DAILY #90 tabs 07/30/24 07/07/25 albuterol sulfate 90 mcg/actuation 2 inh inhalation Q4H PRN shortness 08/17/24 07/07/25 aerosol inhaler (Ventolin HFA) of breath or wheezing #2 ea mometasone 220 mcg/actuation(60 1 inh inhalation QPM #1 ea 08/17/24 07/07/25 doses) breath activated powder inhaler (Asmanex Twisthaler) famotidine 40 mg tablet 40 mg PO BID #30 tabs 06/28/25 07/07/25 Previous Rx's ?Medication ?Instructions ?Recorded montelukast 10 mg tablet 10 mg PO DAILY #90 tabs 07/30/24 albuterol sulfate 90 mcg/actuation 2 inh inhalation Q4H PRN shortness 08/17/24 aerosol inhaler (Ventolin HFA) of breath or wheezing #2 ea mometasone 220 mcg/actuation(60 1 inh inhalation QPM #1 ea 08/17/24 doses) breath activated powder inhaler (Asmanex Twisthaler) famotidine 40 mg tablet 40 mg PO BID #30 tabs 06/28/25 Allergies Allergy/AdvReac Type Severity Reaction Status Date / Time cat dander Allergy Mild Sinus Verified 06/28/25 11:18 congestion; watery eyes dog dander Allergy Mild Sinus Verified 06/28/25 11:18 congestion; watery eyes house dust mite Allergy Mild Sinus Verified 06/28/25 11:18 congestion; watery eyes General Stated Complaint: Chest Pain JOSELINE: 3 Course Vital Signs Vital signs: Vital Signs Temperature 36.8 C 07/07/25 10:13 Pulse 77 07/07/25 10:13 Respiratory Rate 20 07/07/25 10:13 Blood Pressure 130/68 07/07/25 10:13 Pulse Oximetry 100 07/07/25 10:13 Temperature 36.8 C 07/07/25 10:13 Temperature Source Oral 07/07/25 10:13 Pulse 63 07/07/25 10:46 Pulse 76 07/07/25 10:46 Respiratory Rate 12 07/07/25 10:46 Respiratory Effort Normal 07/07/25 10:20 Respiratory Depth Normal 07/07/25 10:20 Respiratory Pattern Normal 07/07/25 10:20 Blood Pressure 149/72 H 07/07/25 10:46 Blood Pressure Mean 96 07/07/25 10:46 Pulse Oximetry 99 07/07/25 10:46 Oxygen Delivery Method Room Air 07/07/25 10:13 Oxygen Flow Rate 0 07/07/25 10:13 Lab/Test Results Lab/Test Results: Laboratory Tests Range/Units 07/07/25 07/07/25 10:36 10:48 WBC (4.4-10.8) 10^3/uL 6.79 RBC (4.36-5.78) 10^6/uL 5.02 Hgb (13.5-17.5) g/dL 14.5 Hct (40.0-50.0) % 42.5 MCV (80-95) fL 85 MCH (27.0-33.0) pg 28.9 MCHC (32.0-36.0) % 34.1 RDW (11.8-14.1) % 12.4 Plt Count (130-400) 10^3/uL 276 MPV (8.0-11.0) fL 10.3 Immature Gran % % 0.1 Neutrophils % % 77.8 Lymphocytes % % 15.0 Monocytes % % 5.7 Eosinophils % % 1.0 Basophils % % 0.4 Nucleated RBC % (0.0-0.3) % 0.0 Absolute Neutrophils (1.2-6.7) 10^3/uL 5.27 Absolute Lymphocytes (1.2-3.4) 10^3/uL 1.02 L Absolute Monocytes (0.1-0.8) 10^3/uL 0.39 Absolute Eosinophils (0.0-0.7) 10^3/uL 0.07 Absolute Basophils (0.0-0.2) 10^3/uL 0.03 D-Dimer (<500) ng/mlFEU 120 Sodium (136-145) mmol/L 141 Potassium (3.5-5.1) mmol/L 3.5 Chloride (98-107) mmol/L 105 Carbon Dioxide (20.0-31.0) mmol/L 26.6 Anion Gap (3-11) mmol/L 9.4 BUN (9-23) mg/dL 7 L Creatinine (0.73-1.18) mg/dL 1.04 Est GFR (CKD-EPI 2020) (mL/min/1.73m2) 87.04 Glucose (74-106) mg/dL 93 Calcium (8.3-10.6) mg/dL 9.9 Magnesium (1.6-2.6) mg/dL 2.1 Total Bilirubin (0.2-1.2) mg/dL 0.7 AST (<34) U/L 16 ALT (10-49) U/L 13 Alkaline Phosphatase (46-116) U/L 87 Troponin I Cancelled < 3 NT-Pro-B Natriuret Pep (<300) pg/mL < 35 Total Protein (5.7-8.2) g/dL 7.7 Albumin (3.2-5.0) g/dL 4.8 Medical Decision Making Quality:SDOH Health Related Social Needs: Health related social needs house/econ circumstance lonely/isolated PFSH All Active Problems (Updated 07/07/25 @ 11:30 by Anthony Weston MD) Sinus arrhythmia (Acute) Palpitations (Acute) Indigestion (Acute) Acid reflux (Chronic) Body mass index [BMI] pediatric, 5th percentile to less than 85th percentile for age (Acute 08/30/15) Urticaria due to cold and heat (Acute 07/23/12) Medical History Asthma Asthma, moderate persistent, well-controlled (06/30/12) well managed with flovent Body mass index [BMI] pediatric, 5th percentile to less than 85th percentile for age (08/30/15) Ingrowing toenail (02/19/13) Urticaria due to cold and heat (07/23/12) Surgical History Circumcision Oral/Tooth Toe nail removal Family History Mother Healthy adult on routine physical examination Father Healthy adult on routine physical examination Other Essential hypertension MGM, MGF Personal history of malignant neoplasm MGM-brain, MGF-colon Heart disease MGF Hyperlipidemia MGF, MGM Wilm's tumor (nephroblastoma) mat aunt Asthma mat cousins Social History (Updated 06/24/23 @ 08:32 by Sunshine Santa CMA) Smoking/Tobacco Use Status: Never Smoking risk assessment performed?: Yes Alcohol Intake: never Drug use: Never Substance use type: does not use Adopted: No Foster care: No Household members: family Housing: house Number of Children: 0 number of grandchildren: 0 Communication Needs: None Do you need help understanding health information?: Rarely Pets and animals: Yes (1) Pets and animals: cat(s) Sexually active: No Do you think of yourself as: straight/heterosexual Current gender identity: male What is your relationship status?: refused to answer How often do you talk on the phone with friends or family?: three or more times per week How often do you get together with friends or relatives?: twice per week Panel score (0-1 are the most socially isolated patients): 1 Seatbelt use: always Helmet use: Yes Helmet use: always Drive 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 Do you feel safe at home: Yes Do you feel safe in your relationship?: Yes POCUS Exam (ED) Limited Cardiac Exam DATE OF EXAM: 07/07/25 TIME OF EXAM: 10:40 PROVIDER THAT PERFORMED THE STUDY: Anthony Weston REASON FOR EXAM: Chest pain VISUALIZED STRUCTURES: Four Chambers, Left atrium, Left ventricle, LVOT, Right atrium, Right ventricle, Mitral valve and Interventricular septum VIEW OBTAINED: Apical 4-Chamber, Parasternal long-axis, Parasternal short-axis and Subxiphoid PERTINENT FINDINGS/IMPRESSION: No apparent abnormalities; No LV dysfunction, No pericardial effusion, No RV dilation and No RV dysfunction Exam complete
[2025-07-07 11:32] VITALS: BP 125/67; PULSE 70; PULSE 71; RESP 12; O2SAT 99
[2025-07-07 11:33] VITALS: PULSE 84; PULSE 85; RESP 15; O2SAT 100
--- NOTE | 2025-07-07 11:39 | DI.VRAD_ITS ---
PROCEDURE INFORMATION: Exam: XR Chest Exam date and time: 07/07/2025 11:03 AM Age: 24 years old Clinical indication: Other: Dyspnea TECHNIQUE: Imaging protocol: Radiologic exam of the chest. Views: 2 views. COMPARISON: CR XR PORTABLE CHEST AP 06/26/2022 9:33 PM FINDINGS: Lungs: No consolidation. Lungs are hyperinflated. Pleural spaces: Unremarkable. No pleural effusion. No pneumothorax. Heart/Mediastinum: Unremarkable. No cardiomegaly. Bones/joints: Unremarkable. IMPRESSION: No acute findings. Dictated and Authenticated by: Darren Tony MD. Orderin Trista Cruz MD
[2025-07-07 11:41] VITALS: PULSE 90; PULSE 92; RESP 25; O2SAT 98
== END 2025-07-07 11:53 | disposition home or self-care (01) ==
PROVIDERS: Emergency Provider General Practice; PCP Family Medicine
DX: I49.8 Other specified cardiac arrhythmias (principal); R00.2 Palpitations; Z59.89 Other problems related to housing and economic circumstances; Z60.8 Other problems related to social environment
CPT/HCPCS: 99283; 99284; 36415; 80053; 93005; 93308; 71046; 83735; 83880; 84484; 85025; 85379; 93010